=== PATIENT | female | born 1985 ===

== ENCOUNTER 2019-03-16 05:04 | Day surgery (SDC) | payer OTHER ==
[~2019-03-16 05:04] MED LIST: LEVOXYL88 MCG PO
[2019-03-16] MEDS ORDERED: PERCOCET 5-3251 EACH PO (08:44)
== END 2019-03-16 10:10 | disposition home or self-care (01) ==
LOC: CIR.AMB 05:04 → EDBD 11:45 → CIR.AMB 11:45 → ADM 11:45
DX: N84.0 Polyp of corpus uteri (principal)